=== PATIENT | female | born 1950 | race Caucasian/White ===

== ENCOUNTER → 2016-06-29 | Outpatient (CLI) | payer OTHER | LOC: FIMAGING 14:21 | PROVIDERS: ATTEND Internal Medicine Hematology & Oncology | DX: Z12.31 Encounter for screening mammogram for malignant neoplasm of breast (principal); Z13.820 Encounter for screening for osteoporosis; M85.80 Other specified disorders of bone density and structure, unspecified site; Z85.3 Personal history of malignant neoplasm of breast | CPT/HCPCS: G0202 ==

== ENCOUNTER → 2016-07-09 | Outpatient (CLI) | payer OTHER | LOC: FIMAGING 19:01 | PROVIDERS: ATTEND Family Medicine | DX: E04.9 Nontoxic goiter, unspecified (principal); M48.02 Spinal stenosis, cervical region; M99.71 Connective tissue and disc stenosis of intervertebral foramina of cervical region; M50.321 Other cervical disc degeneration at C4-C5 level; M12.88 Other specific arthropathies, not elsewhere classified, other specified site; Z98.1 Arthrodesis status; Z85.3 Personal history of malignant neoplasm of breast ==

== ENCOUNTER → 2016-07-09 | Outpatient (CLI) | payer OTHER ==
[~2016-07-09] MED LIST: GADOBUTROL 10 ML VIAL IVP ONE
== END ==
LOC: FIMAGING 19:34
PROVIDERS: ATTEND Internal Medicine Hematology & Oncology
DX: M51.86 Other intervertebral disc disorders, lumbar region (principal); Z85.3 Personal history of malignant neoplasm of breast
CPT/HCPCS: A9585

== ENCOUNTER → 2017-07-01 | Outpatient (CLI) | payer OTHER | LOC: FIMAGING 09:23 | PROVIDERS: ATTEND Internal Medicine Hematology & Oncology | DX: Z12.31 Encounter for screening mammogram for malignant neoplasm of breast (principal); Z85.3 Personal history of malignant neoplasm of breast ==

== ENCOUNTER → 2018-06-21 | Outpatient (CLI) | payer OTHER | LOC: FIMAGING 13:55 | PROVIDERS: ATTEND Family Medicine | DX: R40.20 Unspecified coma (principal); I77.1 Stricture of artery; E78.2 Mixed hyperlipidemia; Z85.3 Personal history of malignant neoplasm of breast | CPT/HCPCS: 70544; 70548; A9585; 82565-PO ==

== ENCOUNTER → 2018-07-05 | Outpatient (CLI) | payer OTHER | LOC: FIMAGING 09:22 | PROVIDERS: ATTEND Internal Medicine Hematology & Oncology | DX: Z12.31 Encounter for screening mammogram for malignant neoplasm of breast (principal); Z85.3 Personal history of malignant neoplasm of breast ==

== ENCOUNTER → 2018-07-06 | Outpatient (CLI) | payer OTHER | DX: R40.20 Unspecified coma (principal); J34.1 Cyst and mucocele of nose and nasal sinus; Z85.3 Personal history of malignant neoplasm of breast | CPT/HCPCS: 70553; A9585 ==

== ENCOUNTER 2018-07-14 07:09 | Observation (INO) | payer OTHER ==
[2018-07-14] MEDS ORDERED: BACITRACIN IRRIGATION/NS 50,000 UNITS/1,000 ML BTL IRR ONE (07:14)
[2018-07-14] MEDS ORDERED: ceFAZolin 2 GM/DEXTROSE 100 ML IV ONE (07:14)
[2018-07-14] MEDS ORDERED: NS 1,000 ML IV ONE (07:14)
[2018-07-14 07:52] LABS: INR 0.87 (0.83-1.16); PROTIME(PATIENT) 11.5 SEC (12.0-15.0)
[2018-07-14] MEDS ORDERED: MIDAZOLAM 2 MG/2 ML VIAL IVP ONE (07:54)
--- NOTE | 2018-07-14 07:54 | PDANEPAE ---
ANE History of Present Illness dual chamber pacemaker ANE Past Medical History - Cardiovascular History Hx Hypertension: No Hx Arrhythmias: Yes Hx Chest Pain: No Hx Coronary Artery / Peripheral Vascular Disease: No Hx CHF / Valvular Disease: No Hx Palpitations: No - Pulmonary History Hx COPD: No Hx Asthma/Reactive Airway Disease: No Hx Recent Upper Respiratory Infection: No Hx Oxygen in Use at Home: No Hx Sleep Apnea: No - Neurologic History Hx Cerebrovascular Accident: No Hx Seizures: No Hx Dementia: No - Endocrine History Hx Diabetes: No Hypothyroid: No Hyperthyroid: No Obesity: no - Renal History Hx Renal Disorders: No - Liver History Hx Hepatic Disorders: No - Neurological & Psychiatric Hx Hx Neurological and Psychiatric Disorders: No ANE Review of Systems Review of Systems: - Exercise capacity Exercise capacity: >=4 METS ANE Patient History - Allergies Allergies/Adverse Reactions: acetaminophen [From [place]] Allergy (Verified 07/07/18 10:21) Itching codeine Allergy (Verified 07/07/18 10:21) Itching hydrocodone [From [place]] Allergy (Verified 07/07/18 10:21) Itching morphine Allergy (Verified 07/07/18 10:21) Itching oxycodone [From [place]] Allergy (Verified 07/07/18 10:21) Itching - Home Medications Home Medications: Citalopram Hydrobromide [Celexa] 40 mg PO DAILY 07/07/18 [Last Taken Unknown] traZODone [traZODONE 50MG (*)] 50 mg PO HS 07/07/18 [Last Taken Unknown] - NPO status NPO Status: no food or drink >8 hours - Anes Hx Anes Hx: no prior problems ANE Labs/Vital Signs - Labs Result Diagrams: 07/14/18 07:30 07/14/18 07:30 ANE Physical Exam - Airway Mallampati Score: Class 2 Mouth exam: normal dental/mouth exam - Pulmonary Pulmonary: no respiratory distress - Cardiovascular Cardiovascular: regular rate and rhythym - ASA Status ASA Status: II ANE Anesthesia Plan Anesthesia Plan: GA w LMA
[2018-07-14] MEDS ORDERED: PROPOFOL/EMULSION 500 MG/50 ML BOTTLE IV ONE ×2 (07:56→08:55)
[2018-07-14] MEDS ORDERED: LIDOCAINE 2% 2 ML INJ ONE ×2 (07:56→07:57)
[2018-07-14 07:57] LABS: PLATELET COUNT 204 10^3/uL (150-400)
[2018-07-14] MEDS ORDERED: LIDOCAINE 1% 300 MG/30 ML SDV ONE (08:10)
[2018-07-14] MEDS ORDERED: BUPIVACAINE 0.5% 30 ML SDV ONE (08:10)
[2018-07-14] MEDS ORDERED: fentaNYL 100 MCG/2 ML INJ ONE (08:16)
--- NOTE | 2018-07-14 08:29 | PDGENHP ---
History & Physical Chief Complaint: sick sinus syndrome History of Present Illness: sick sinus syndrome with syncope Relevant Physical Exam: A+Ox4, RR/NR, no MRG, CTAB, no focal deficits Cardiorespiratory Assessment: SSS -> dual chamber pacemaker implant
[2018-07-14] MEDS ORDERED: MIDAZOLAM 2 MG/2 ML VIAL ONE (08:33)
[2018-07-14] MEDS ORDERED: ePHEDrine SULFATE 25 MG/5 ML SYR ONE (08:58)
[2018-07-14] MEDS ORDERED: NALOXONE HCL 0.4 MG/ML INJ IVP PRN (10:12)
[2018-07-14] MEDS ORDERED: fentaNYL 100 MCG/2 ML INJ IVP PRN (10:12)
[2018-07-14] MEDS ORDERED: ALBUTEROL 3 ML DEYVIAL IH PRN (10:12)
[2018-07-14] MEDS ORDERED: HYDROCODONE/APAP 5/325 TAB PO PRN (10:20)
--- NOTE | 2018-07-14 10:31 | POSTANESTH ---
Post Anesthetic Evaluation Cardiovascular Status: Normal, Stable Respiratory Status: Normal, Stable Level of Consciousness/Mental Status: Can Participate in Eval Pain Control: Adequate, Prn Tx Ordered Nausea/Vomiting Control: Adequate, Prn Tx Ordered Complications Possibly Related to Anesthesia: None Noted
--- NOTE | 2018-07-14 10:37 | EPPROC ---
Electrophysiology Procedure Note: Date: 07/14/2018 Procedure: Implantation of dual-chamber pacemaker -[id number] Indications: 67-year-old female with sick sinus syndrome manifesting in the form of sinus pauses with associated syncope. Techniques: Following informed consent, the patient was brought to the EP lab in a fasting nonsedated state, in sinus rhythm. IV antibiotics were administered. IV sedation was provided by the anesthesiology service. The left anterior chest was prepped and draped in usual sterile fashion. 1% lidocaine was infiltrated over the left DP groove. Under ultrasound guidance, percutaneous access was obtained x2 in the extrathoracic portion of the left subclavian vein. Of note, the left subclavian vein was quite collapsible, and a combination of Trendelenburg positioning, manual abdominal pressure, jaw thrust were used to minimize vein collapse; a micro puncture kit was used for access. A skin incision was made at the left DP groove, and cutdown was performed to the DP fascia; a subcutaneous pocket was fashioned. Two 6 [place] sheaths were inserted over the access wires. Pacing leads were delivered to RV septal and RA appendage positions and actively fixated. The leads were anchored to the underlying fascia using 2 nonabsorbable sutures around each lead 's retention sleeve. The leads were connected to the pulse generator. The system was placed in pocket and a non resorbable stay suture was applied to the can. The pocket was irrigated with antibiotic solution and D Stat hemostatic matrix was injected. The incision was closed in layers using resorbable sutures and dressed with Steri-Strips. Final fluoroscopic survey showed no evidence of pneumothorax, and stable system position. The patient tolerated the procedure well. Pulse generator: Biotronik [id number], SN [id number], implant 07/14/18 DDD-CLS 60-130 RA lead: Biotronik [id number], SN [id number], implant 07/14/18 3.5mV, 585ohms, 0.9V@0.4ms RV lead: Biotronik [id number], SN [id number], implant 07/14/18 8.7mV, 799ohms, 0.5V@0.4ms EBL: Minimal Complications: None Assessment: Successful implantation of dual-chamber pacemaker for treatment of sick sinus syndrome Plan: Stat chest x-ray due to difficult access Overnight observation with 4 hr bedrest postprocedure Chest x-ray and interrogation in a.m. Keep incision dry for 14 days Left upper extremity restrictions for 30 days
[2018-07-14] MEDS: ACETAMINOPHEN 500 MG TAB PO PRN ×2 (14:43→20:56)
[2018-07-14] MEDS ORDERED: traZODone 50 MG TAB PO SCH (21:00)
[2018-07-15 03:50] LABS: PLATELET COUNT 167 10^3/uL (150-400)
[2018-07-15] MEDS ORDERED: CITALOPRAM 20 MG TAB PO SCH (09:00)
[2018-07-15 09:27] VITALS: BP 116/70
[2018-07-15] MEDS: ACETAMINOPHEN 500 MG TAB PO PRN (10:37)
--- NOTE | 2018-07-15 14:28 | ASDISCHSUM ---
Discharge Information Plan Status:Home with No Needs Medically Cleared to Leave:07/15/2018 Discharge Date:07/15/2018 11:50 AM CM D/C Disposition:Home, Routine, Self-Care ADT D/C Disposition:Home, Routine, Self-Care Projected Discharge Date:07/15/2018 11:50 AM Transportation at D/C: Discharge Delay Reason: Follow-Up Date:07/15/2018 11:50 AM Discharge Slot: Final Diagnosis: Placement Information Patient Contact Information Contact Name:ALBERT Relationship: Address:[address] [place] Alternate Phone: State/Zip Code:[place] [address] Email: Financial Information Financial Class:Medicare Advantage Plans Primary Plan Desc:[employer] MEDICARE ADV Primary Plan Number:[id number] Secondary Plan Desc: Secondary Plan Number: Assessment Information LACE LACE Length of stay for Answers: 1 day current admission Acuity / Level of Answers: No Care: Did the patient have an inpatient admission? # of Emergency department Answers: 0 visits in the last 6 months Score: 1 Date Signed: 07/15/2018 02:25 PM Electronically Signed By:Nicole Alcaraz RN Intervention Information
--- NOTE | 2018-07-15 18:01 | GDS ---
[f rep st] DISCHARGE SUMMARY DISCHARGE DIAGNOSES: 1. Sick sinus syndrome. 2. Status post implant of dual-chamber pacemaker. BRIEF HISTORY: This is a 67-year-old woman with a history of 2 episodes of syncope. She had greater than 3 second pauses noted on her preventive monitor. She also had overall sinus bradycardia. HOSPITAL COURSE: Dr. Massey implanted a dual-chamber Biotronik pacemaker. This was done without complications. It is programmed DDD CLS with a base rate of 60. On the day of discharge, the pacemaker interrogation demonstrated normal function. P waves were 6.3 mV. Atrial capture threshold was 0.5 V at 0.4 msec. Atrial lead impedance was 585 ohms and R-waves are 10.2 mV. RV capture threshold is 0.4 V at 0.4 msec, and RV impedance is 702 ohms. She did well overnight. She has not had any significant pain at the implant site. She has not had any chest pain or shortness of breath. LABORATORY/IMAGING: Lab work: WBC is 6.36, hematocrit 45.1, hemoglobin 14.8, platelets 167. Sodium 143, potassium 4.3, chloride 110, bicarb is 27, BUN 17, creatinine 0.6, glucose 99, calcium 9.5. Chest x-ray demonstrated no pneumothorax. There is a slight decrease in the slack in the RA lead. PHYSICAL EXAMINATION: VITAL SIGNS: Blood pressure is 116/70, heart rate is 68 , respiratory rate 18, O2 saturation 94% on room air. CHEST: Pacemaker site Steri-Strips are dry and intact without any bleeding or drainage. No swelling or tenderness. LUNGS: With crackles bilaterally in the bases. CARDIAC: Regular rate and rhythm without murmur, rub, or gallop. EXTREMITIES: Warm. No discoloration. DISCHARGE INSTRUCTIONS: Reviewed post-pacemaker implant activity restrictions and these were written down in her discharge summary also. She understands not to get the pacemaker site wet for 2 weeks. DISCHARGE MEDICATIONS: She will continue her usual home medications. FOLLOWUP: She has a followup scheduled for pacemaker check and a wound check on July 28 at 2:30. ADDENDUM Sravan Massey MD - Patient seen and case discussed with Ms Kaplan. Relevant portion of history/physical/ROS/data review were personally performed by me. Uneventful postop observation s/p implantation of dual chamber pacemaker. Postop care as above. /[id number]/MODL MTDD
== END 2018-07-15 11:50 | disposition home or self-care (01) ==
LOC: FCATH 07:09 → F2W 10:14
PROVIDERS: ADMIT Internal Medicine Cardiovascular Disease; ATTEND Internal Medicine Cardiovascular Disease
DX: I49.5 Sick sinus syndrome (principal); Z85.3 Personal history of malignant neoplasm of breast; F12.90 Cannabis use, unspecified, uncomplicated; E78.00 Pure hypercholesterolemia, unspecified
CPT/HCPCS: 33208; 71045; 71046; A4649; C1785; C1898; G0378; J0690; J2250; J2704; J3010

== ENCOUNTER 2018-07-16 17:43 | Emergency (ER) | payer OTHER ==
[2018-07-16] MEDS ORDERED: diphenhydrAMINE 25 MG CAP PO ONE ×2 (17:56→18:12)
--- NOTE | 2018-07-16 17:59 | EDPHY ---
H & P Stated Complaint: PM site infection Time Seen by Provider: 07/16/18 17:51 HPI/ROS: CHIEF COMPLAINT: Rash and itching around incision HISTORY OF PRESENT ILLNESS: Patient is a 67-year-old female who had a pacemaker placed 2 days ago for sick sinus syndrome. She has sutures and Steri- Strips in place. For the last 24 hr she has had itching and hives at the area. Some improvement with Benadryl. No drainage. No fever. Severity: Moderate Modifying factors: See above REVIEW OF SYSTEMS: Constitutional: denies: chills, fever, recent illness, recent injury EENTM: denies: blurred vision, double vision, nose congestion Respiratory: denies: cough, shortness of breath Cardiac: denies: chest pain, irregular heart rate, lightheadedness, palpitations Gastrointestinal/Abdominal: denies: abdominal pain, diarrhea, nausea, vomiting, blood streaked stools Genitourinary: denies: dysuria, frequency, hematuria, pain Musculoskeletal: denies: joint pain, muscle pain Skin: See HPI Neurological: denies: headache, numbness, paresthesia, tingling, dizziness, weakness Hematologic/Lymphatic: denies: blood clots, easy bleeding, easy bruising Immunologic/allergic: denies: HIV/AIDS, transplant 10 systems reviewed and negative except as noted EXAM: GENERAL: Well-appearing, well-nourished and in no acute distress. HEAD: Atraumatic, normocephalic. EYES: Pupils equal round and reactive to light, extraocular movements intact, sclera anicteric, conjunctiva are normal. ENT: TMs normal, nares patent, oropharynx clear without exudates. Moist mucous membranes. NECK: Normal range of motion, supple without lymphadenopathy or JVD. LUNGS: Breath sounds clear HEART: See below Regular rate and rhythm ABDOMEN: Soft, nontender, normoactive bowel sounds. No guarding, no rebound. No masses appreciated. BACK: No CVA tenderness, no spinal tenderness, step-offs or deformities EXTREMITIES: Normal range of motion, no pitting or edema. No clubbing or cyanosis. NEUROLOGICAL: Cranial nerves II through XII grossly intact. Normal speech, normal gait. 5/5 strength, normal movement in all extremities, normal sensation , normal reflexes PSYCH: Normal mood, normal affect. SKIN: erythema surrounding Steri-Strips. Some clear crusting. Minimal weeping. Not erythematous. Incision intact. Source: Patient Exam Limitations: No limitations - Personal History Current Tetanus/Diphtheria Vaccine: Yes - Medical/Surgical History Hx Asthma: No Hx Chronic Respiratory Disease: No Hx Diabetes: No Hx Cardiac Disease: Yes Hx Renal Disease: No Hx Cirrhosis: No Hx Alcoholism: No Hx HIV/AIDS: No Hx Splenectomy or Spleen Trauma: No Other PMH: syncopal episodes, depression, spinal surgeries, rotator cuff surgery , gall bladder removed, appendectomy - Family History Significant Family History: No pertinent family hx - Social History Smoking Status: Never smoked Alcohol Use: None Drug Use: None Constitutional: Initial Vital Signs Heart Rate 70 07/16/18 17:45 Respiratory Rate 18 07/16/18 17:45 Blood Pressure 144/93 H 07/16/18 17:45 O2 Sat (%) 98 07/16/18 17:45 O2 Delivery Mode Room Air Allergies/Adverse Reactions: acetaminophen [From [place]] Allergy (Verified 07/16/18 17:46) Itching codeine Allergy (Verified 07/16/18 17:46) Itching hydrocodone [From [place]] Allergy (Verified 07/16/18 17:46) Itching morphine Allergy (Verified 07/16/18 17:46) Itching oxycodone [From Percocet] Allergy (Verified 07/16/18 17:46) Itching Home Medications: Medication Instructions Recorded Citalopram Hydrobromide [Celexa] 40 mg PO DAILY 07/07/18 traZODone [traZODONE 50MG (*)] 50 mg PO HS 07/07/18 Medical Decision Making ED Course/Re-evaluation: The patient does appear to be having an allergic type reaction to bandages or sutures or lidocaine or something. Will remove the Steri-Strips and treat with antihistamines. Offered steroids but she declines for fear of increasing infection risk. Will cover with antibiotic cream and simple bandages. Will have her follow up with a telemetry technician on Wednesday. She will continue taking Benadryl at home. 645 I discussed the case with Cesar from [facility]. He agrees that it is too early to consider infection. He agrees with Benadryl and is okay with holding on prednisone at this time. They will follow up with her on Wednesday. The office will call her. Patient and are happy with this plan. Discussed indications for returning. Differential Diagnosis: Partial list of the Differential diagnosis considered include but were not limited to; allergic reaction to tape, allergic reaction to lidocaine, pocket infection, wound infection and although unlikely based on the history and physical exam, I also considered cellulitis, abscess. I discussed these differential diagnoses and the plan with the patient as well as the usual and expected course. The patient understands that the diagnosis is provisional and that in medicine we are not always correct and that further workup is often warranted. Usual and customary warnings were given. All of the patient's questions were answered. The patient was instructed to return to the emergency department should the symptoms at all worsen or return, otherwise to followup with the physician as we discussed. - Data Points Medications Given: Discontinued Medications Diphenhydramine HCl (Benadryl) 50 mg PO EDNOW ONE Stop: 07/16/18 17:57 Last Admin: 07/16/18 18:07 Dose: 50 mg Departure - Departure Disposition: Home, Routine, Self-Care Clinical Impression: Local allergic reaction, Dermatitis Condition: Fair Instructions: General Allergic Reaction (ED) Additional Instructions: Continue taking Benadryl every 4 hr as needed. Keep clean and covered. Follow up with Cardiology on Wednesday. Referrals: Darcy Mahmood MD [Primary Care Provider] - As per Instructions Vanessa Hernandez MD [Medical Doctor] - 1-2 days without fail
[2018-07-16 19:13] VITALS: BP 163/105
== END 2018-07-16 19:11 | disposition home or self-care (01) ==
DX: T78.40XA Allergy, unspecified, initial encounter (principal); L30.9 Dermatitis, unspecified; Z95.0 Presence of cardiac pacemaker